=== PATIENT | female | born 1965 | race Caucasian/White ===

== ENCOUNTER 2016-12-18 18:44 | Emergency (ER) | payer OTHER ==
--- NOTE | 2016-12-18 19:27 | ED NURSING NOTES ---
Clinical Report - Nurses [facility] [address] [place] [address] 12/18/2016 18:45 Patient: BRANDON MAY TRIAGE Triage time 18:56 Dec 18 2016. Acuity: LEVEL 3. Chief Complaint: COUGH and FEVER. SEPSIS SCREEN: Sepsis Screen: negative. Infection suspected/documented. Heart rate greater than 90. DIANE COMA SCORE: Diane Coma Scale: 15- eyes open spontaneously (4); best verbal response- oriented x 4 (5); best motor response- obeys commands (6). --19:02 Karon Hunter 18:59 12/18/16. BP: 153/96. HR: 110. RR: 20. O2 saturation: 100% on room air. Temp: 97.5 F (oral). Pain level now: 04/03. --19:02 Karon Hunter. Weight: 45.3 kg stated. Height/Length: 63 inches Per Patient. BMI: 17.7. --19:02 Karon Hunter. Medications Aleve Oral 440 mg, 2x a day. --19:00 Karon Hunter. Allergies Morphine and Related. Definite Moderate(jittery) (shakes) --19:00 Karon Hunter. History Arrived by private vehicle. Historian: patient. Accompanied by friend. Primary physician (rod). Onset. (2 weeks). ( Patient reports she has been coughing and having fever for two weeks. Patient reports a roommate has been diagnosed with flu and pneumonia. Patient reports she has been waiting to get better but has not improved.). She has had chest congestion. PAST MEDICAL HX: Immunizations: up-to-date. Last normal menstrual period- 2 years ago. SOCIAL HX: Heavy tobacco smoker (cigarette)- 1 pack per day. Alcohol use; consumes one wine daily. No drug use. No infectious disease exposure. ABUSE ASSESSMENT: No report of abuse. FALL RISK ASSESSMENT: Fall risk assessment completed. No fall risk identified. NUTRITIONAL RISK ASSESSMENT: The nutritional risk assessment revealed no deficiencies. FUNCTIONAL ASSESSMENT: Functional assessment: no impairments noted. LEARNING NEEDS ASSESSMENT: The learning needs assessment revealed no barriers. SKIN INTEGRITY ASSESSMENT: Skin integrity risk assessment completed. No skin integrity risk identified. --19:02 Karon Hunter. PROBLEMS: Paresthesia. Pancreatitis. Alcohol Withdrawal. Peptic Ulcer Disease. Cellulitis. Chest Pain. Fibromyalgia. Hypertension. --19: Karon Hunter. ADDITIONAL SURGERIES: Breast Augmentation. . Thyroid Surgery. --19: Karon Hunter. Interventions ID band on patient. To treatment room. --19:02 Karon Hunter. PHYSICAL ASSESSMENT Ambulatory to room. GENERAL / NEURO / PSYCH: Alert. Oriented X 4. Appears in no acute distress. HEENT: Mucous membranes are pink. RESPIRATORY: Respirations not labored. Cough productive of scant amounts of yellow sputum. CVS: Cardiac rhythm: sinus tachycardia; (109). SKIN: Skin is warm and dry. --19:03 Karon Hunter. NURSING PROGRESS NOTES 19:03 12/18/16. Pulse oximeter and NIBP monitor placed on patient; monitor alarms on. Patient gowned. Head of bed elevated. Warming measures: blanket applied. Reassurance given to the patient. Two patient identifiers checked. Call light placed in reach. Side rails up x 1. Bed placed in lowest position. Brakes of bed on. Patient ready for evaluation- chart flagged. --19:03 Karon Hunter. DISPOSITION / DISCHARGE 19:35 12/18/16. Condition at departure: stable. No learning barriers present. Discharge instructions provided and reviewed with the patient. Reviewed medication(s) side effects, precautions, dosing and course information. Prescription(s) given to the patient. Reviewed need for increased fluid intake. Reviewed need to stop smoking- provided smoking cessation counseling. Patient verbalized understanding. Written instructions provided in Belarusian. The patient was discharged by the nurse practitioner. She was discharged home and accompanied by speech and language assistant. She left the Emergency Department ambulatory and via private vehicle. Child Nutrition Director driving. --19:35 Kraon Hunter 19:33 12/18/16. BP: 109/80. HR: 95. RR: 20. O2 saturation: 97% on room air. Temp: 98 F (oral). Pain level now: 5/10. --19:35 Karon Hunter The goals identified in the patient's plan of care were met. FALL RISK ASSESSMENT: Fall risk assessment completed. No fall risk identified. --19:35 Karon Hunter. Locked/Released at 12/18/2016 20:26 by Karon Hunter,
--- NOTE | 2016-12-18 19:27 | ED NURSING NOTES ---
Clinical Report - Nurses [facility] [address] [place] [address] 12/18/2016 18:45 Patient: BRANDON MAY TRIAGE Triage time 18:56 Dec 18 2016. Acuity: LEVEL 3. Chief Complaint: COUGH and FEVER. SEPSIS SCREEN: Sepsis Screen: negative. Infection suspected/documented. Heart rate greater than 90. DIANE COMA SCORE: Diane Coma Scale: 15- eyes open spontaneously (4); best verbal response- oriented x 4 (5); best motor response- obeys commands (6). --19:02 Karon Hunter 18:59 12/18/16. BP: 153/96. HR: 110. RR: 20. O2 saturation: 100% on room air. Temp: 97.5 F (oral). Pain level now: 04/03. --19:02 Karon Hunter. Weight: 45.3 kg stated. Height/Length: 63 inches Per Patient. BMI: 17.7. --19:02 Karon Hunter. Medications Aleve Oral 440 mg, 2x a day. --19:00 Karon Hunter. Allergies Morphine and Related. Definite Moderate(jittery) (shakes) --19:00 Karon Hunter. History Arrived by private vehicle. Historian: patient. Accompanied by friend. Primary physician (rod). Onset. (2 weeks). ( Patient reports she has been coughing and having fever for two weeks. Patient reports a roommate has been diagnosed with flu and pneumonia. Patient reports she has been waiting to get better but has not improved.). She has had chest congestion. PAST MEDICAL HX: Immunizations: up-to-date. Last normal menstrual period- 2 years ago. SOCIAL HX: Heavy tobacco smoker (cigarette)- 1 pack per day. Alcohol use; consumes one wine daily. No drug use. No infectious disease exposure. ABUSE ASSESSMENT: No report of abuse. FALL RISK ASSESSMENT: Fall risk assessment completed. No fall risk identified. NUTRITIONAL RISK ASSESSMENT: The nutritional risk assessment revealed no deficiencies. FUNCTIONAL ASSESSMENT: Functional assessment: no impairments noted. LEARNING NEEDS ASSESSMENT: The learning needs assessment revealed no barriers. SKIN INTEGRITY ASSESSMENT: Skin integrity risk assessment completed. No skin integrity risk identified. --19:02 Karon Hunter. PROBLEMS: Paresthesia. Pancreatitis. Alcohol Withdrawal. Peptic Ulcer Disease. Cellulitis. Chest Pain. Fibromyalgia. Hypertension. --19: Karon Hunter. ADDITIONAL SURGERIES: Breast Augmentation. . Thyroid Surgery. --19: Karon Hunter. Interventions ID band on patient. To treatment room. --19:02 Karon Hunter. PHYSICAL ASSESSMENT Ambulatory to room. GENERAL / NEURO / PSYCH: Alert. Oriented X 4. Appears in no acute distress. HEENT: Mucous membranes are pink. RESPIRATORY: Respirations not labored. Cough productive of scant amounts of yellow sputum. CVS: Cardiac rhythm: sinus tachycardia; (109). SKIN: Skin is warm and dry. --19:03 Karon Hunter. NURSING PROGRESS NOTES 19:03 12/18/16. Pulse oximeter and NIBP monitor placed on patient; monitor alarms on. Patient gowned. Head of bed elevated. Warming measures: blanket applied. Reassurance given to the patient. Two patient identifiers checked. Call light placed in reach. Side rails up x 1. Bed placed in lowest position. Brakes of bed on. Patient ready for evaluation- chart flagged. --19:03 Karon Hunter. DISPOSITION / DISCHARGE 19:35 12/18/16. Condition at departure: stable. No learning barriers present. Discharge instructions provided and reviewed with the patient. Reviewed medication(s) side effects, precautions, dosing and course information. Prescription(s) given to the patient. Reviewed need for increased fluid intake. Reviewed need to stop smoking- provided smoking cessation counseling. Patient verbalized understanding. Written instructions provided in South [place]ese. The patient was discharged by the nurse practitioner. She was discharged home and accompanied by parent aide. She left the Emergency Department ambulatory and via private vehicle. [employer] driving. --19:35 Karon Hunter 19:33 12/18/16. BP: 109/80. HR: 95. RR: 20. O2 saturation: 97% on room air. Temp: 98 F (oral). Pain level now: 5/10. --19:35 Karon Hunter The goals identified in the patient's plan of care were met. FALL RISK ASSESSMENT: Fall risk assessment completed. No fall risk identified. --19:35 Karon Hunter. Locked/Released at 12/18/2016 20:26 by Karon Hunter,
--- NOTE | 2016-12-18 19:27 | ED CLINICAL REPORT ---
Clinical Report - Physicians/Mid Levels [facility] [address] [place] [address] 12/18/2016 18:45 Patient: BRANDON MAY Time Seen: 19:02; initial patient contact, initial documentation, patient care assumed. Arrived- By private vehicle. Historian- patient. HISTORY OF PRESENT ILLNESS Chief Complaint: COUGH. This started about 2 weeks ago and is still present. The illness is described as moderate. The patient has had a cough and fever. She has had scant amounts of thick, clear, yellow, green, white sputum. No sore throat, nasal congestion or discharge, sinus pressure or sinus drainage. She has had moderate right ear pain and has had mild left ear pain. Additional history - The patient has had contact with a sick friend. Symptoms of the sick contact include cough. They have had similar symptoms. No recent travel. Similar symptoms previously: None. Recent medical care: Not recently seen/assessed. REVIEW OF SYSTEMS No headache. All systems otherwise negative, except as recorded above. PAST HISTORY See nurses notes. PROBLEMS: Paresthesia. Pancreatitis. Alcohol Withdrawal. Peptic Ulcer Disease. Cellulitis. Chest Pain. Fibromyalgia. Hypertension. --19:01 Karon Hunter. ADDITIONAL SURGERIES: Breast Augmentation. . Thyroid Surgery. --19:01 Karon Hunter. SOCIAL HISTORY Heavy tobacco smoker. Regular alcohol use; consumes wine. Not exposed to second-hand smoke at home. No drug use. No recent travel. Is a local resident. FAMILY HISTORY Negative. ADDITIONAL NOTES The nursing notes have been reviewed with agreement regarding the chief complaint, HPI, ROS, PMH and patient medications and allergies. PHYSICAL EXAM Vital Signs: 12/18/2016 18:59 BP: 153/96. HR: 110. RR: 20. O2 saturation: 100%. Temp: 97.5 F. Pain level now: 6/10. Have been reviewed as abnormal and appear to be correct. Hypertensive. Tachycardic. Respiratory rate normal. Temperature normal. Oxygen saturation normal. Appearance: Alert. No acute distress. Eyes: Pupils equal, round and reactive to light. Eyes normal inspection. ENT: Ears normal. Nose normal. Pharynx normal. Uvula midline. Neck: Normal inspection. Neck supple. CVS: Heart rate / rhythm abnormal. Tachycardia (ventricular rate = 110). Heart sounds normal. Pulses normal. Respiratory: No respiratory distress. Breath sounds normal. Back: Normal inspection. Skin: Skin warm and dry. Normal skin color. No rash. Normal skin turgor. Extremities: Extremities exhibit normal ROM. No lower extremity edema. Neuro: Oriented X 3. No motor deficit. No sensory deficit. PROGRESS AND PROCEDURES Patient counseled in person regarding the patient's stable condition and diagnosis. 19:26. Differential Diagnosis: Other possible considerations: viral illness, flu, sinusitis, allergies, uri, bronchitis, pneumonia. Above considerations are based on history and physical exam. Differential diagnosis was discussed with patient. Disposition: Discharged home in good and unchanged condition (19:27). Condition: good and stable. CLINICAL IMPRESSION Acute bacterial bronchitis. No chronic obstructive pulmonary disease, asthma or bronchospasm. INSTRUCTIONS Drink plenty of fluids. Warnings: GENERAL WARNINGS: Return or contact your physician immediately if your condition worsens or changes unexpectedly, if not improving as expected, or if other problems arise. Specifically return if problem worsens. Prescription Medications: Zithromax 250 mg tablets: take 2 orally today, followed by 1 daily for the next 4 days. No refills. Substitution is permissible. Follow-up: Follow up with your doctor in about three days as needed. Call for an appointment. Summary of care provided to patient. Understanding of the discharge instructions verbalized by patient. (Electronically signed by Belkis Avila A.R.N.P. 12/18/2016 19:50)
--- NOTE | 2016-12-18 20:27 | ED MAR SUMMARY ---
..... Medication Administration Record [facility] [address], [place] [id number] Patient: BRANDON MAY Visit ID: [id number] 51y, F Weight: 45.3 kg Height/Length: 63 in BMI: 17.7 ALLERGIES: Morphine and Related
--- NOTE | 2016-12-18 20:27 | ED MAR SUMMARY ---
..... Medication Administration Record [facility] [address], [place] [id number] Patient: BRANDON MAY Visit ID: [id number] 51y, F Weight: 45.3 kg Height/Length: 63 in BMI: 17.7 ALLERGIES: Morphine and Related
--- NOTE | 2016-12-18 20:27 | ED MED RECONCILIATION SUMMARY ---
Patient: BRANDON MAY Medication Reconciliation Report [facility] VisitID: [id number] [address] [place] [address] 51y, F Registration Date/Time: 12/18/2016 Weight: 45.3 kg Height/Length: 63 in. BMI: 17.7 ALLERGIES: Morphine and Related The patient's Home Medications are listed below: THE FOLLOWING MEDICATIONS NEED TO BE RECONCILED: Aleve Oral 440 mg, 2x a day The source(s) of the original Home Medication information: Not obtained. The following Medications were given to the patient in the Emergency Department: None. The following Medications were prescribed to the patient: Zithromax 250 mg tablets: take 2 orally today, followed by 1 daily for the next 4 days. No refills. Substitution is permissible. -- Belkis Avila A.R.N.P.
--- NOTE | 2016-12-18 20:27 | ED DISCHARGE INSTRUCTIONS ---
Patient: BRANDON MAY General Instructions [facility] VisitID: [id number] [address] [place] [address] 51y, F Registration Date/Time: 12/18/2016 Acute bacterial bronchitis. No chronic obstructive pulmonary disease, asthma or bronchospasm. INSTRUCTIONS Drink plenty of fluids. Warnings: GENERAL WARNINGS: Return or contact your physician immediately if your condition worsens or changes unexpectedly, if not improving as expected, or if other problems arise. Specifically return if problem worsens. Prescription Medications: Zithromax 250 mg tablets: take 2 orally today, followed by 1 daily for the next 4 days. No refills. Substitution is permissible. Follow-up: Follow up with your doctor in about three days as needed. Call for an appointment. Summary of care provided to patient. Understanding of the discharge instructions verbalized by patient. ADDITIONAL INFORMATION Bronchitis (Adult: Abx Tx) BRONCHITIS is an infection of the air passages (bronchial tubes). It often occurs during the common cold. Symptoms include cough with mucus (phlegm) and low-grade fever. Bronchitis usually lasts 7-14 days. Mild cases can be treated with simple home remedies. More severe infection is treated with an antibiotic. Home Care: If symptoms are severe, rest at home for the first 2-3 days. When you resume activity, don't let yourself get too tired. Do not smoke. Avoid being exposed to the smoke of others. You may use acetaminophen (Tylenol) or ibuprofen (Motrin, Advil) to control fever or pain, unless another medicine was prescribed for this. [NOTE: If you have chronic liver or kidney disease or ever had a stomach ulcer or GI bleeding, talk with your doctor before using these medicines.] Your appetite may be poor, so a light diet is fine. Avoid dehydration by drinking 6-8 glasses of fluids per day (water, soft, drinks, juices, tea, soup, etc.). Extra fluids will help loosen secretions in the lungs. Stui-ftg-[id number] cough medicines that containdextromethorphan(such as Robitussin DM) and decongestants (Actifed or Sudafed) may help relieve cough and congestion. [NOTE: Do not use decongestants if you have high blood pressure.] Finish all antibiotic medicine, even if you are feeling better after only a few days. Follow Up with your doctor or as directed if you dont start to feel better after three days. [NOTE: If you are age 65 or older, or if you have chronic asthma or COPD, we recommend a PNEUMOCOCCAL VACCINATION every five years and a yearly INFLUENZAVACCINATION (FLU-SHOT) every . Ask your doctor about this. If you had an X-ray, a radiologist will review it. You will be notified of any new findings that may affect your care.] Get Prompt Medical Attention if any of the following occur: Fever over 100.4F (38.0C) for more than three days Trouble breathing, wheezing or pain with breathing Coughing up blood or increased amounts of colored sputum Weakness, drowsiness, headache, facial pain, ear pain or a stiff neck Azithromycin Oral tablet What is this medicine? AZITHROMYCIN (az ith tyrone MYE sin) is a macrolide antibiotic. It is used to treat or prevent certain kinds of bacterial infections. It will not work for colds, flu, or other viral infections. How should I use this medicine? Take this medicine by mouth with a full glass of water. Follow the directions on the prescription label. The tablets can be taken with food or on an empty stomach. If the medicine upsets your stomach, take it with food. Take your medicine at regular intervals. Do not take your medicine more often than directed. Take all of your medicine as directed even if you think your are better. Do not skip doses or stop your medicine early. Talk to your executive wellness programs director regarding the use of this medicine in children. Special care may be needed. What side effects may I notice from receiving this medicine? Side effects that you should report to your doctor or health care giver as soon as possible: allergic reactions like skin rash, itching or hives, swelling of the face, lips, or tongue confusion, nightmares or hallucinations dark urine difficulty breathing hearing loss irregular heartbeat or chest pain pain or difficulty passing urine redness, blistering, peeling or loosening of the skin, including inside the mouth white patches or sores in the mouth yellowing of the eyes or skin Side effects that usually do not require medical attention (report to your doctor or health care giver if they continue or are bothersome): diarrhea dizziness, drowsiness headache stomach upset or vomiting tooth discoloration vaginal irritation What may interact with this medicine? Do not take this medicine with any of the following medications: lincomycin This medicine may also interact with the following medications: amiodarone antacids cyclosporine digoxin magnesium nelfinavir phenytoin warfarin What if I miss a dose? If you miss a dose, take it as soon as you can. If it is almost time for your next dose, take only that dose. Do not take double or extra doses. Where should I keep my medicine? Keep out of the reach of children. Store at room temperature between 15 and 30 degrees C (59 and 86 degrees F). Throw away any unused medicine after the expiration date. What should I tell my health care provider before I take this medicine? They need to know if you have any of these conditions: kidney disease liver disease irregular heartbeat or heart disease an unusual or allergic reaction to azithromycin, erythromycin, other macrolide antibiotics, foods, dyes, or preservatives or trying to get breast-feeding What should I watch for while using this medicine? Tell your doctor or health care giver if your symptoms do not improve. Do not treat diarrhea with over the counter products. Contact your doctor if you have diarrhea that lasts more than 2 days or if it is severe and watery. This medicine can make you more sensitive to the sun. Keep out of the sun. If you cannot avoid being in the sun, wear protective clothing and use sunscreen. Do not use sun lamps or tanning beds/booths. You have been given the following additional information: Bronchitis, Antiobiotic Treatment (Adult) Azithromycin Oral tablet (Electronically signed by Belkis Avila A.R.N.P. 12/18/2016 19:50)
--- NOTE | 2016-12-18 20:27 | ED DISCHARGE INSTRUCTIONS ---
Patient: BRANDON MAY General Instructions [facility] VisitID: [id number] [address] [place] [address] 51y, F Registration Date/Time: 12/18/2016 Acute bacterial bronchitis. No chronic obstructive pulmonary disease, asthma or bronchospasm. INSTRUCTIONS Drink plenty of fluids. Warnings: GENERAL WARNINGS: Return or contact your physician immediately if your condition worsens or changes unexpectedly, if not improving as expected, or if other problems arise. Specifically return if problem worsens. Prescription Medications: Zithromax 250 mg tablets: take 2 orally today, followed by 1 daily for the next 4 days. No refills. Substitution is permissible. Follow-up: Follow up with your doctor in about three days as needed. Call for an appointment. Summary of care provided to patient. Understanding of the discharge instructions verbalized by patient. ADDITIONAL INFORMATION Bronchitis (Adult: Abx Tx) BRONCHITIS is an infection of the air passages (bronchial tubes). It often occurs during the common cold. Symptoms include cough with mucus (phlegm) and low-grade fever. Bronchitis usually lasts 7-14 days. Mild cases can be treated with simple home remedies. More severe infection is treated with an antibiotic. Home Care: If symptoms are severe, rest at home for the first 2-3 days. When you resume activity, don't let yourself get too tired. Do not smoke. Avoid being exposed to the smoke of others. You may use acetaminophen (Tylenol) or ibuprofen (Motrin, Advil) to control fever or pain, unless another medicine was prescribed for this. [NOTE: If you have chronic liver or kidney disease or ever had a stomach ulcer or GI bleeding, talk with your doctor before using these medicines.] Your appetite may be poor, so a light diet is fine. Avoid dehydration by drinking 6-8 glasses of fluids per day (water, soft, drinks, juices, tea, soup, etc.). Extra fluids will help loosen secretions in the lungs. Mtpb-tcy-hjwmpoz cough medicines that containdextromethorphan(such as Robitussin DM) and decongestants (Actifed or Sudafed) may help relieve cough and congestion. [NOTE: Do not use decongestants if you have high blood pressure.] Finish all antibiotic medicine, even if you are feeling better after only a few days. Follow Up with your doctor or as directed if you dont start to feel better after three days. [NOTE: If you are age 65 or older, or if you have chronic asthma or COPD, we recommend a PNEUMOCOCCAL VACCINATION every five years and a yearly INFLUENZAVACCINATION (FLU-SHOT) every . Ask your doctor about this. If you had an X-ray, a radiologist will review it. You will be notified of any new findings that may affect your care.] Get Prompt Medical Attention if any of the following occur: Fever over 100.4F (38.0C) for more than three days Trouble breathing, wheezing or pain with breathing Coughing up blood or increased amounts of colored sputum Weakness, drowsiness, headache, facial pain, ear pain or a stiff neck Azithromycin Oral tablet What is this medicine? AZITHROMYCIN (az ith tyrone MYE sin) is a macrolide antibiotic. It is used to treat or prevent certain kinds of bacterial infections. It will not work for colds, flu, or other viral infections. How should I use this medicine? Take this medicine by mouth with a full glass of water. Follow the directions on the prescription label. The tablets can be taken with food or on an empty stomach. If the medicine upsets your stomach, take it with food. Take your medicine at regular intervals. Do not take your medicine more often than directed. Take all of your medicine as directed even if you think your are better. Do not skip doses or stop your medicine early. Talk to your senior network engineer regarding the use of this medicine in children. Special care may be needed. What side effects may I notice from receiving this medicine? Side effects that you should report to your doctor or health landcare facilitator as soon as possible: allergic reactions like skin rash, itching or hives, swelling of the face, lips, or tongue confusion, nightmares or hallucinations dark urine difficulty breathing hearing loss irregular heartbeat or chest pain pain or difficulty passing urine redness, blistering, peeling or loosening of the skin, including inside the mouth white patches or sores in the mouth yellowing of the eyes or skin Side effects that usually do not require medical attention (report to your doctor or health landcare facilitator if they continue or are bothersome): diarrhea dizziness, drowsiness headache stomach upset or vomiting tooth discoloration vaginal irritation What may interact with this medicine? Do not take this medicine with any of the following medications: lincomycin This medicine may also interact with the following medications: amiodarone antacids cyclosporine digoxin magnesium nelfinavir phenytoin warfarin What if I miss a dose? If you miss a dose, take it as soon as you can. If it is almost time for your next dose, take only that dose. Do not take double or extra doses. Where should I keep my medicine? Keep out of the reach of children. Store at room temperature between 15 and 30 degrees C (59 and 86 degrees F). Throw away any unused medicine after the expiration date. What should I tell my health care provider before I take this medicine? They need to know if you have any of these conditions: kidney disease liver disease irregular heartbeat or heart disease an unusual or allergic reaction to azithromycin, erythromycin, other macrolide antibiotics, foods, dyes, or preservatives or trying to get breast-feeding What should I watch for while using this medicine? Tell your doctor or health landcare facilitator if your symptoms do not improve. Do not treat diarrhea with over the counter products. Contact your doctor if you have diarrhea that lasts more than 2 days or if it is severe and watery. This medicine can make you more sensitive to the sun. Keep out of the sun. If you cannot avoid being in the sun, wear protective clothing and use sunscreen. Do not use sun lamps or tanning beds/booths. You have been given the following additional information: Bronchitis, Antiobiotic Treatment (Adult) Azithromycin Oral tablet (Electronically signed by Belkis Avila A.R.N.P. 12/18/2016 19:50)
--- NOTE | 2016-12-18 20:27 | ED MED RECONCILIATION SUMMARY ---
Patient: BRANDON MAY Medication Reconciliation Report [facility] VisitID: [id number] [address] [place] [address] 51y, F Registration Date/Time: 12/18/2016 Weight: 45.3 kg Height/Length: 63 in. BMI: 17.7 ALLERGIES: Morphine and Related The patient's Home Medications are listed below: THE FOLLOWING MEDICATIONS NEED TO BE RECONCILED: Aleve Oral 440 mg, 2x a day The source(s) of the original Home Medication information: Not obtained. The following Medications were given to the patient in the Emergency Department: None. The following Medications were prescribed to the patient: Zithromax 250 mg tablets: take 2 orally today, followed by 1 daily for the next 4 days. No refills. Substitution is permissible. -- Belkis Avila A.R.N.P.
== END 2016-12-18 19:30 | disposition home or self-care (01) ==
LOC: ED SRH 18:44
DX: J20.8 Acute bronchitis due to other specified organisms (principal); B96.89 Other specified bacterial agents as the cause of diseases classified elsewhere; I10 Essential (primary) hypertension; Z88.5 Allergy status to narcotic agent; F17.210 Nicotine dependence, cigarettes, uncomplicated

== ENCOUNTER 2017-01-22 08:41 | Emergency (ER) | payer OTHER ==
--- NOTE | 2017-01-22 10:19 | DIAGNOSTIC IMAGING REPORT ---
PROCEDURE: CT HEAD WITHOUT CONTRAST INDICATION: TRAUMA/INJURY TECHNIQUE: Axial CT images were acquired through the head. Coronal and sagittal reformations were created. COMPARISON: None. FINDINGS: No intracranial hemorrhage or extraaxial fluid collections. Ventricles are normal in size, shape and position. There is no mass, mass effect or midline shift. Mild diffuse cerebral cortical atrophy. The hussein-white matter differentiation is normal. There is no edema. The calvarium is intact. The paranasal sinuses and mastoid air cells are normally aerated. Very small soft tissue contusion over the frontal region in the midline. IMPRESSION: 1. No CT evidence of acute intracranial process. 2. Minor frontal soft tissue contusion without underlying fracture. 3. Findings discussed with Dr. Brown at 10:[address] scans at this facility use dose modulation, iterative reconstruction, and/or weight-based dosing when appropriate to reduce radiation dose to as low as reasonably achievable.
--- NOTE | 2017-01-22 10:24 | DIAGNOSTIC IMAGING REPORT ---
PROCEDURE: CT CERVICAL SPINE W/O CONTRAST INDICATION: TRAUMA/INJURY, fall onto the frontal region TECHNIQUE: Axial CT images were obtained through the cervical spine. Coronal and sagittal reformations were created. No comparison. COMPARISON: None. FINDINGS: The craniocervical junction is intact. The cervical vertebral bodies are normal in height without evidence of fracture. There is moderate uncovertebral joint hypertrophy at the C5-6 level causing moderate right, and mild left foraminal narrowing. Mild posterior disc osteophyte complexes present at C6-7. Small posterior central spur present at T1-2. No pathologic subluxation. Moderate disc height loss at C5-6 and mild disc height loss at C4-5. The alignment and disk spacing is otherwise normal. The central canal is patent. No spinal stenosis or neural foraminal narrowing. No prevertebral or paravertebral soft-tissue swelling or mass. There has been a left thyroidectomy. There is ascending arrow ectasia of the ascending aorta measuring 3.9 cm in AP diameter. Lung apices demonstrate minor emphysematous changes. Patent airway. IMPRESSION: 1. Intact cervical spine without evidence of acute trauma. 2. Mild degenerative disc endplate changes. There may be a moderate right foraminal narrowing at C5-6 causing right C6 radiculopathy. Correlate clinically. 3. Status post left thyroidectomy. 4. Findings called to the emergency room. All CT scans at this facility use dose modulation, iterative reconstruction, and/or weight-based dosing when appropriate to reduce radiation dose to as low as reasonably achievable.
--- NOTE | 2017-01-22 10:29 | ED NURSING NOTES ---
Clinical Report - Nurses [facility] [address] [place] [address] 01/22/2017 8:42 Patient: BRANDON MAY TRIAGE Triage time 08:48 Jan 22 2017. Acuity: LEVEL 3. Chief Complaint: FALL (Fell in bathroom about an hour and half ago due to dog tripping her. Hit head on jewelery box). 08:55 01/22/17. SEPSIS SCREEN: Sepsis Screen. Negative (no infection suspected/documented). MITCH COMA SCORE: Butler Coma Scale: 14- eyes open to voice (3); best verbal response- oriented x 4 (5); best motor response- obeys commands (6). --08:55 Johanna Freire R.N. 08:48 01/22/17. BP: 151/108 (regular adult cuff) taken on the left arm, while lying. HR: 104. RR: 16 (regular). O2 saturation: 100% on room air. Temp: 97.5 F (oral). Pain level now: 7/10. Additional comments: STRANGE. --08:55 Johanna Freire R.N. Weight: 46.2 kg stated. Height/Length: 63 inches Per Patient. BMI: 18. --08:50 Johanna Freire R.N. Medications Aleve Oral 440 mg, 2x a day. --08:49 Johanna Freire R.N. Benadryl Allergy Oral. --08:49 Johanna Freire R.N. Allergies Morphine and Related. Definite Moderate(jittery) (shakes) --08:49 Johanna Freire R.N. History Arrived by private vehicle. Historian: patient. Accompanied by friend. Primary physician (Dr Oscar). This occurred just prior to arrival. She has had neck pain. ( Patient complains of extreme STRANGE). Treatment EXAMINATION PROCTOR: None. PAST MEDICAL HX: Hypertension. SOCIAL HX: Current every day heavy tobacco smoker- 1 pack per day. Alcohol use; consumes two glasses of wine. Last drink was less than 24 hours ago. No infectious disease exposure. ABUSE ASSESSMENT: No report of abuse. --08:55 Johanna Freire R.N. PROBLEMS: Bronchitis. Paresthesia. Pancreatitis. Peptic Ulcer Disease. Cellulitis. Fibromyalgia. Hypertension. --08:50 Johanna Freire R.N. ADDITIONAL SURGERIES: Breast Augmentation. . Thyroid Surgery. --08:50 Johanna Freire R.N. Interventions ID band on patient. To treatment room. --08:55 Johanna Freire R.N. PHYSICAL ASSESSMENT Ambulatory to room. GENERAL / NEURO / PSYCH: Alert. Oriented X 4. Appears in pain. HEENT: Forehead. Head non-tender. RESPIRATORY: Chest nontender. CVS: Capillary refill less than 2 seconds. GI / : Abdomen soft and nontender. EXTREMITIES: Extremities exhibit normal ROM. SKIN: Skin intact. Skin is warm. --08:56 Johanna Freire R.N. NURSING PROGRESS NOTES 08:56 01/22/17. The plan of care for this patient has been created. Cold pack applied. Reassurance given. Two patient identifiers checked. Call light placed in reach. Side rails up x 1. Bed placed in lowest position. Brakes of bed on. Patient ready for evaluation- chart flagged and ED physician notified. --08:56 Johanna Freire R.N. Patient transported to [place] by stretcher with [employer]. (09:18 Jan 22 2017). --09:18 Johanna Freire R.N. ( Patient unable to comply with breathalyzer, attempted 3 times but patient not blowing into device with clear instructions). --09:19 Johanna Freire R.N. Patient returned from [place] by stretcher with [employer]. (09:27 Jan 22 2017). --09:28 Johanna Freire R.N. 09:30 01/22/2017 Acetaminophen (APAP) PO 1000 mg given. Allergies verified and confirmed 5 rights. --09:30 Johanna Freire R.N. ( Patient cold, requested more blankets). --09:32 Johanna Freire R.N. 09:31 01/22/17. BP: 117/95 (regular adult cuff) taken on the left arm, while sitting. HR: 94. RR: 16 (regular). O2 saturation: 97% on room air. Pain level now: 05/03. Additional comments: STRANGE. --09:32 Johanna Freire R.N. 09:00 01/22/17. BP: 120/96 (regular adult cuff) taken on the left arm, while sitting. HR: 90. RR: 16 (regular). O2 saturation: 98% on room air. Pain level now: 05/03. --09:35 Johanna Freire R.N. ( Patient would like C-Collar placed after results of CT scan). --09:40 Johanna Freire R.N. ( CCollar placed on patient, while patient was trying to adjust chin area, she scratched her chin and it bled, bandage placed.). --09:58 Johanna Freire R.N. DISPOSITION / DISCHARGE Departure time: 10:37 Jan 22 2017. Condition at departure: improved. No learning barriers present. Discharge instructions provided and reviewed with the patient. Patient verbalized understanding. Written instructions provided in Argentine. The patient was discharged by the physician. She was discharged home and accompanied by class c truck driver. She left the Emergency Department ambulatory and via private vehicle. Dental Hygienist Mobile Coordinator driving. --10:37 Johanna Freire R.N. 10:35 01/22/17. BP: 126/95 (regular adult cuff) taken on the left arm, while sitting. HR: 90. RR: 16 (regular). O2 saturation: 98% on room air. Temp: 97.9 F (oral). Pain level now: 05/03. --10:37 Johanna Freire R.N. Locked/Released at 01/22/2017 10:58 by Johanna Freire R.N.
--- NOTE | 2017-01-22 10:29 | ED CLINICAL REPORT ---
Clinical Report - Physicians/Mid Levels [facility] [address] [place] [address] 01/22/2017 8:42 Patient: BRANDON MAY Time Seen: 08:49. Arrived- By private vehicle. Historian- patient. HISTORY OF PRESENT ILLNESS Chief Complaint: INJURY TO HEAD. Location of injuries- head. The injury occurred today about 1 1/2 hours ago. Fell while walking; tripped (over dog). Occurred at home. The patient complains of moderate pain. The patient sustained a blow to the head and was dazed. No neck pain, loss of consciousness or seizure. REVIEW OF SYSTEMS No numbness, nausea, chest pain, weakness or loss of vision. No vomiting, difficulty breathing, bladder dysfunction, laceration or fever. Has not recently been ill. She has had a moderate global headache. No similar headaches previously. All systems otherwise negative, except as recorded above. PAST HISTORY PCP: Dr Oscar See nurses notes. PROBLEMS: Paresthesia. Pancreatitis. Alcohol Withdrawal. Peptic Ulcer Disease. Cellulitis. Chest Pain. Fibromyalgia. Hypertension SURGERIES: Breast Augmentation. . Thyroid Surgery. Tetanus immunization status is up-to-date. Medications: Benadryl Allergy Oral. Aleve Oral 440 mg, 2x a day. Allergies: Morphine and Related. Definite Moderate(jittery) (shakes). SOCIAL HISTORY Alcohol use. Last drink was less than 24 hours ago. Patient is a longstanding alcoholic. No drug use. Is a local resident. ADDITIONAL NOTES The nursing notes have been reviewed. PHYSICAL EXAM Vital Signs: 01/22/2017 08:48 BP: 151/108. HR: 104. RR: 16. O2 saturation: 100%. Temp: 97.5 F. Pain level now: 7/10. Appearance: C-collar in place. (placed in the ED). Alert. Patient in mild distress. (Strong odor of the metabolic breakdown products of alcohol on her breath). Head: No Eubanks's sign or raccoon eyes. Forehead: moderate tenderness and swelling and small ecchymosis of the central forehead. No deformity. Eyes: Pupils equal, round and reactive to light. EOM intact. ENT: No dental injury. No hemotympanum. Pharynx normal. Neck: Vertebral tenderness. (there is general midline and lateral tenderness with palpation; no step off; no crepitance; no ecchymosis). CVS: Heart sounds normal. Pulses normal. Respiratory: Breath sounds normal. Chest nontender. Abdomen: Soft and nontender. Back: No tenderness. ROM normal. No vertebral point tenderness. Skin: Skin intact. Skin warm and dry. (Forehead ecchymosis). Extremities: Normal inspection. Pelvis stable. Extremities atraumatic. No lower extremity edema. Neuro: Robbins Coma Scale: 15- eyes open spontaneously (4); best verbal response- oriented x 3 (5); best motor response- obeys commands (6). Oriented X 3. Abnormal mood/affect. Speech normal. No motor deficit. Normal gait. No sensory deficit. Reflexes normal. LABS, X-RAYS, AND EKG CT C-Spine: No acute findings. Soft tissue normal. No fracture or subluxation. C-Spine CT performed without contrast. The study was independently viewed by me, interpreted by the radiologist and discussed with the radiologist. CT Head: No acute changes. No bony abnormalities, no hemorrhage, no intracranial mass, no midline shift and no hydrocephalus. Head CT performed without contrast. The study was independently viewed by me, interpreted by the radiologist and discussed with the radiologist. PROGRESS AND PROCEDURES Course of Care: Acetaminophen 1000 mg PO given. Pt not able to comply with attempts to obtain breathalyzer - not able to coordinate her breathing and the machine. She is somewhat ataxic as well - blames this on her "high heels". She has questionable ability to be monitored for head injury precautions - I will obtain CT after full discussion of risks and benefits with the patient (in the presence of her friend). Patient/family counseled. Old ED records reviewed. Patient has had multiple ED visits. Disposition: Discharged. Condition: stable and improved. CLINICAL IMPRESSION Single contusion with soft tissue hematoma to the forehead. Essential hypertension. Uncomplicated alcohol intoxication. Chronic substance abuse- alcohol. No delirium. Fall on same level by tripping. INSTRUCTIONS Apply ice. Do not work today. Warnings: GENERAL WARNINGS: Return or contact your physician immediately if your condition worsens or changes unexpectedly, if not improving as expected, or if other problems arise. Follow-up: Follow up with your doctor Mikhail in about three days. Screening today revealed the patient's blood pressure to be in the hypertensive range. The patient should follow up with a primary care provider for blood pressure management. (Electronically signed by Cory Brown DO 01/22/2017 16:54)
--- NOTE | 2017-01-22 10:29 | ED ORDER SUMMARY ---
..... Patient: BRANDON MAY OrderSheet [facility] VisitID: [id number] [place] [address] 51y, F Registration Date/Time: 01/22/2017 ORDER SHEET Weight: 46.2 kg (stated) Allergies: Morphine and Related GENERAL ORDERS: CT Cervical Spine wo Cont Urgent (09:03 01/22/2017 [facility]) (Ack 9:04 Nimeshnandez) (9:30 JSanders R.N.) CT Head wo Cont Urgent (09:03 01/22/2017 [facility]) (Ack 9:04 Nimeshnandez) (9:30 JSanders R.N.) C-Collar (09:03 01/22/2017 [facility]) (Ack 9:30 JSanders R.N.) (9:57 JSanders R.N.) Breathalyzer (09:05 01/22/2017 [facility]) (9:17 JSanders R.N.) (Cancelled: Patient Refusal9:17 JSanders R.N.) MEDICATION ORDERS: Acetaminophen PO 1,000 mg (NOW) (09:11 01/22/2017 [facility]) (9:30 JSanders R.N.) IV FLUIDS: ORDER SHEET NOTES: [Electronically signed by Johanna Freire R.N. (10:57 01/22/2017)] [Electronically signed by Cory Brown DO (16:54 01/22/2017)] [Electronically locked/signed by Johanna Freire R.N. (10:57 01/22/2017)]
--- NOTE | 2017-01-22 10:29 | ED ORDER SUMMARY ---
..... Patient: BRANDON MAY OrderSheet [facility] VisitID: [id number] [place] [address] 51y, F Registration Date/Time: 01/22/2017 ORDER SHEET Weight: 46.2 kg (stated) Allergies: Morphine and Related GENERAL ORDERS: CT Cervical Spine wo Cont Urgent (09:03 01/22/2017 [facility]) (Ack 9:04 Nimeshnandez) (9:30 JSanders R.N.) CT Head wo Cont Urgent (09:03 01/22/2017 [facility]) (Ack 9:04 iNmeshnandez) (9:30 JSanders R.N.) C-Collar (09:03 01/22/2017 [facility]) (Ack 9:30 JSanders R.N.) (9:57 JSanders R.N.) Breathalyzer (09:05 01/22/2017 [facility]) (9:17 JSanders R.N.) (Cancelled: Patient Refusal9:17 JSanders R.N.) MEDICATION ORDERS: Acetaminophen PO 1,000 mg (NOW) (09:11 01/22/2017 [facility]) (9:30 JSanders R.N.) IV FLUIDS: ORDER SHEET NOTES: [Electronically signed by Johanna Freire R.N. (10:57 01/22/2017)] [Electronically signed by Cory Brown DO (16:54 01/22/2017)] [Electronically locked/signed by Johanna Freire R.N. (10:57 01/22/2017)]
--- NOTE | 2017-01-22 10:29 | ED NURSING NOTES ---
Clinical Report - Nurses [facility] [address] [place] [address] 01/22/2017 8:42 Patient: BRANDON MAY TRIAGE Triage time 08:48 Jan 22 2017. Acuity: LEVEL 3. Chief Complaint: FALL (Fell in bathroom about an hour and half ago due to dog tripping her. Hit head on jewelery box). 08:55 01/22/17. SEPSIS SCREEN: Sepsis Screen. Negative (no infection suspected/documented). MITCH COMA SCORE: [place] Coma Scale: 14- eyes open to voice (3); best verbal response- oriented x 4 (5); best motor response- obeys commands (6). --08:55 Johanna Freire R.N. 08:48 01/22/17. BP: 151/108 (regular adult cuff) taken on the left arm, while lying. HR: 104. RR: 16 (regular). O2 saturation: 100% on room air. Temp: 97.5 F (oral). Pain level now: 7/10. Additional comments: STRANGE. --08:55 Johanna Freire R.N. Weight: 46.2 kg stated. Height/Length: 63 inches Per Patient. BMI: 18. --08:50 Johanna Freire R.N. Medications Aleve Oral 440 mg, 2x a day. --08:49 Johanna Freire R.N. Benadryl Allergy Oral. --08:49 Johanna Freire R.N. Allergies Morphine and Related. Definite Moderate(jittery) (shakes) --08:49 Johanna Freire R.N. History Arrived by private vehicle. Historian: patient. Accompanied by friend. Primary physician (Dr Oscar). This occurred just prior to arrival. She has had neck pain. ( Patient complains of extreme STRANGE). 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 PAST MEDICAL HX: Hypertension. SOCIAL HX: Current every day heavy tobacco smoker- 1 pack per day. Alcohol use; consumes two glasses of wine. Last drink was less than 24 hours ago. No infectious disease exposure. ABUSE ASSESSMENT: No report of abuse. --08:55 Johanna Freire R.N. PROBLEMS: Bronchitis. Paresthesia. Pancreatitis. Peptic Ulcer Disease. Cellulitis. Fibromyalgia. Hypertension. --08:50 Johanna Freire R.N. ADDITIONAL SURGERIES: Breast Augmentation. . Thyroid Surgery. --08:50 Johanna Freire R.N. Interventions ID band on patient. To treatment room. --08:55 Johanna Freire R.N. PHYSICAL ASSESSMENT Ambulatory to room. GENERAL / NEURO / PSYCH: Alert. Oriented X 4. Appears in pain. HEENT: Forehead. Head non-tender. RESPIRATORY: Chest nontender. CVS: Capillary refill less than 2 seconds. GI / : Abdomen soft and nontender. EXTREMITIES: Extremities exhibit normal ROM. SKIN: Skin intact. Skin is warm. --08:56 Johanna Freire R.N. NURSING PROGRESS NOTES 08:56 01/22/17. The plan of care for this patient has been created. Cold pack applied. Reassurance given. Two patient identifiers checked. Call light placed in reach. Side rails up x 1. Bed placed in lowest position. Brakes of bed on. Patient ready for evaluation- chart flagged and ED physician notified. --08:56 Johanna Freire R.N. Patient transported to [place] by stretcher with Outlisten. (09:18 Jan 22 2017). --09:18 Johanna Freire R.N. ( Patient unable to comply with breathalyzer, attempted 3 times but patient not blowing into device with clear instructions). --09:19 Johanna Freire R.N. Patient returned from PA by stretcher with Outlisten. (09:27 Jan 22 2017). --09:28 Johanna Freire R.N. 09:30 01/22/2017 Acetaminophen (APAP) PO 1000 mg given. Allergies verified and confirmed 5 rights. --09:30 Johanna Freire R.N. ( Patient cold, requested more blankets). --09:32 Johanna Freire R.N. 09:31 01/22/17. BP: 117/95 (regular adult cuff) taken on the left arm, while sitting. HR: 94. RR: 16 (regular). O2 saturation: 97% on room air. Pain level now: 05/03. Additional comments: STRANGE. --09:32 Johanna Freire R.N. 09:00 01/22/17. BP: 120/96 (regular adult cuff) taken on the left arm, while sitting. HR: 90. RR: 16 (regular). O2 saturation: 98% on room air. Pain level now: 05/03. --09:35 Johanna Freire R.N. ( Patient would like C-Collar placed after results of CT scan). --09:40 Johanna Freire R.N. ( CCollar placed on patient, while patient was trying to adjust chin area, she scratched her chin and it bled, bandage placed.). --09:58 Johanna Freire R.N. DISPOSITION / DISCHARGE Departure time: 10:37 Jan 22 2017. Condition at departure: improved. No learning barriers present. Discharge instructions provided and reviewed with the patient. Patient verbalized understanding. Written instructions provided in Com[place]an. The patient was discharged by the physician. She was discharged home and accompanied by meat clerk. She left the Emergency Department ambulatory and via private vehicle. Fire Coordinator driving. --10:37 Johanna Freire R.N. 10:35 01/22/17. BP: 126/95 (regular adult cuff) taken on the left arm, while sitting. HR: 90. RR: 16 (regular). O2 saturation: 98% on room air. Temp: 97.9 F (oral). Pain level now: 05/03. --10:37 Johanna Freire R.N. Locked/Released at 01/22/2017 10:58 by Johanna Freire R.N.
--- NOTE | 2017-01-22 16:54 | ED MAR SUMMARY ---
..... Medication Administration Record [facility] [address] [place] [address] Patient: BRANDON MAY Visit ID: [id number] 51y, F Weight: 46.2 kg Height/Length: 63 in BMI: 18 ALLERGIES: Morphine and Related Given 09:30 01/22/2017 Johanna Freire R.N. Medication Administered: ACETAMINOPHEN [PO] (APAP), Dose: 1000 mg PO. Medication Ordered: Acetaminophen PO 1,000 mg (NOW).
--- NOTE | 2017-01-22 16:54 | ED MED RECONCILIATION SUMMARY ---
Patient: BRANDON MAY Medication Reconciliation Report [facility] VisitID: [id number] [address] [place] [address] 51y, F Registration Date/Time: 01/22/2017 Weight: 46.2 kg Height/Length: 63 in. BMI: 18.0 ALLERGIES: Morphine and Related The patient's Home Medications are listed below: THE FOLLOWING MEDICATIONS NEED TO BE RECONCILED: Aleve Oral 440 mg, 2x a day Benadryl Allergy Oral The source(s) of the original Home Medication information: Not obtained. The following Medications were given to the patient in the Emergency Department: Acetaminophen [PO] PO 1000 mg, administered: 01/22/2017 9:30:00 AM The following Medications were prescribed to the patient: None.
--- NOTE | 2017-01-22 16:54 | ED MAR SUMMARY ---
..... Medication Administration Record [facility] [address] [place] [address] Patient: BRANDON MAY Visit ID: [id number] 51y, F Weight: 46.2 kg Height/Length: 63 in BMI: 18 ALLERGIES: Morphine and Related Given 09:30 01/22/2017 Johanna Freire R.N. Medication Administered: ACETAMINOPHEN [PO] (APAP), Dose: 1000 mg PO. Medication Ordered: Acetaminophen PO 1,000 mg (NOW).
--- NOTE | 2017-01-22 16:54 | ED DISCHARGE INSTRUCTIONS ---
Patient: BRANDON MAY General Instructions [facility] VisitID: [id number] [place] [address] 51y, F Registration Date/Time: 01/22/2017 Single contusion with soft tissue hematoma to the forehead. Essential hypertension. Uncomplicated alcohol intoxication. Chronic substance abuse- alcohol. No delirium. Fall on same level by tripping. INSTRUCTIONS Apply ice. Do not work today. Warnings: GENERAL WARNINGS: Return or contact your physician immediately if your condition worsens or changes unexpectedly, if not improving as expected, or if other problems arise. Follow-up: Follow up with your doctor Mikhail in about three days. Screening today revealed the patient's blood pressure to be in the hypertensive range. The patient should follow up with a primary care provider for blood pressure management. ADDITIONAL INFORMATION Mechanical Fall You have had a fall today. It appears that the cause is mechanical. That means that you slipped, tripped or lost your balance. If your fall had been due to fainting or a seizure, further tests would be required. Home Care: Rest today and resume your normal activities when you are feeling back to normal. If you were injured during the fall, follow the advice from your doctor regarding care of your injury. You may use acetaminophen (Tylenol) or ibuprofen (Motrin, Advil) to control pain, unless another pain medicine was prescribed. [NOTE: If you have chronic liver or kidney disease or ever had a stomach ulcer or GI bleeding, talk with your doctor before using these medicines.] Fall Prevention: Was there anything that caused your fall that can be fixed, removed, or replaced? Make your home safe by keeping walkways clear of objects you may trip over. Use non-slip pads under rugs. Do not walk in poorly lit areas. Do not stand on chairs or wobbly ladders. Use caution when reaching overhead or looking upward. This position can cause a loss of balance. Be sure your shoes fit properly, have non-slip bottoms and are in good condition. Be cautious when going up and down curbs, and walking on uneven sidewalks. If your balance is poor, consider using a cane or walker. Stay as active as you can. Balance, flexibility, strength, and endurance all come from exercise. They all play a role in preventing falls. Follow Up with your doctor or as advised by our staff. Get Prompt Medical Attention if any of the following occur: Repeated mechanical falls, or unexplained falls Dizziness, fainting or seizure Severe headache Chest pain or shortness of breath Palpitations (very rapid or very slow or irregular heartbeat) Blood in vomit, stools (black or red color) Weakness of an arm or leg or one side of the face Difficulty with speech or vision Facial Contusion (No Wake-Up) A facial contusion is a bruise with swelling and sometimes bleeding under the skin. The swelling should start to go down within two days. Although there may be no signs of a serious injury at this time, symptoms may appear later which could be a sign of a more serious problem. Therefore, watch for the warning signs below. Home care The following guidelines will help you care for your injury at home: If you have swelling of the face, apply an ice pack (ice cubes in a plastic bag, wrapped in a towel) for 20 minutes every 12 hours until the swelling starts to go down. If you have scrapes or cuts on your face, clean them daily with soap and water. Apply an antibiotic ointment or cream for the first few days to prevent infection. You may use acetaminophen or ibuprofen to control pain, unless another pain medicine was prescribed.If you have chronic liver or kidney disease or ever had a stomach ulcer or GI bleeding, talk with your doctor before using these medicines. Do not use ibuprofen in children under six months of age. For the next 24 hours: Do not take alcohol, sedatives or medicines that make you sleepy. Do not drive or operate machinery. Avoid strenuous activities. No lifting or straining. If you have had any symptoms of aconcussiontoday (nausea, vomiting, dizziness, confusion, headache, memory loss or if you were knocked out), do not return to sports or any activity that could result in another head injury until all symptoms are gone and you have been cleared by your doctor. A second head injury before fully recovering from the first one can lead to serious brain injury. Follow-up care Follow up with your doctor in one week or as directed. Note: Any X-rays or CT scans taken will be reviewed by a radiologist. You will be notified of any new findings that may affect your care. When to seek medical care Get prompt medical attention if any of the following occur: Repeated vomiting Severe or worsening headache or dizziness Unusual drowsiness, or unable to awaken as usual Confusion or change in behavior or speech, memory loss, blurred vision Convulsion (seizure) Increasing scalp or face swelling Redness, warmth or pus from the swollen area Fluid drainage or bleeding from the nose or ears Fever of 100.4F (38C) or higher, or as directed by your health care provider Increasing jaw pain with chewing or increasing pain in the sinuses Nose looks crooked or cannot breathe through your nose after swelling goes down High Blood Pressure --Established High Blood Pressure (Hypertension) is a chronic disease. The cause is unknown in most cases. It can usually be controlled with lifestyle changes and/or medicines. Symptoms of high blood pressure may include headache, dizziness, visual changes, chest pain and shortness of breath. Sometimes it causes no symptoms at all. However, even if there are no symptoms, untreated high blood pressure increases the risk of heart attack, also known as acute myocardial infarction, or AMI, and stroke. It is a serious health risk and should not be ignored. A normal blood pressure is 120/80 or less. The first (top) number is the "systolic" pressure. The second (bottom) number is the "diastolic" pressure. Hypertension exists when either the top number is 140 or higher, OR the bottom number is 90 or higher on repeated measurements. Home Care: All patients with high blood pressure should do the following to lower their pressure. If you are on medicines, then these methods may reduce or eliminate your need for medicines in the future. Begin a weight loss program if you are overweight. Reduce your salt intake. Avoid high salt foods (olives, pickles, smoked meats, salted potato chips, etc.). Do not add salt to your food at the table. Use only small amounts of salt when cooking. Begin an exercise program. Discuss with your doctor what type of exercise program would be best for you. It doesn't have to be difficult. Even brisk walking for 20 minutes three times a week is a good form of exercise. Avoid medicines which contain heart stimulants. This includes many cold and sinus decongestant pills and sprays as well as diet pills. Check the warnings about hypertension on the label. Stimulants such as amphetamine or cocaine could be lethal for someone with hypertension. Never take these. Limit your caffeine intake or switch to caffeine-free products. Stop smoking. If you are a long-time smoker, this can be hard. Enroll in a stop-smoking program to improve your chance of success. Learning how to handle stress better is an important part of any program to lower blood pressure. Learn about relaxation methods such as meditation, yoga or biofeedback. If medicines were prescribed, take them exactly as directed. Missing doses may cause your blood pressure get out of control. Consider buying an automatic blood pressure machine (available at most pharmacies). Use this to monitor your blood pressure at home and report the results to your doctor. Follow Up: Regular visits to your own physician for blood pressure checks and medicine adjustment is an important part of your care. Make a follow-up appointment as directed by our staff. Get Prompt Medical Attention if any of the following occur: Chest pain or shortness of breath Severe headache Throbbing or rushing sound in the ears Nosebleed Sudden severe abdominal pain Extreme drowsiness, confusion or fainting Dizziness or vertigo (dizziness with spinning sensation) Weakness of an arm or leg or one side of the face Difficulty with speech or vision You have been given the following additional information: Fall, Mechanical Facial Contusion, No Wakeup Hypertension, Established Do not work today. (Electronically signed by Cory Brown DO 01/22/2017 16:54)
--- NOTE | 2017-01-22 16:54 | ED MED RECONCILIATION SUMMARY ---
Patient: BRANDON MAY Medication Reconciliation Report [facility] VisitID: [id number] [address] [place] [address] 51y, F Registration Date/Time: 01/22/2017 Weight: 46.2 kg Height/Length: 63 in. BMI: 18.0 ALLERGIES: Morphine and Related The patient's Home Medications are listed below: THE FOLLOWING MEDICATIONS NEED TO BE RECONCILED: Aleve Oral 440 mg, 2x a day Benadryl Allergy Oral The source(s) of the original Home Medication information: Not obtained. The following Medications were given to the patient in the Emergency Department: Acetaminophen [PO] PO 1000 mg, administered: 01/22/2017 9:30:00 AM The following Medications were prescribed to the patient: None.
== END 2017-01-22 10:37 | disposition home or self-care (01) ==
LOC: ED SRH 08:41
DX: S00.83XA Contusion of other part of head, initial encounter (principal); F10.120 Alcohol abuse with intoxication, uncomplicated; I10 Essential (primary) hypertension; W01.0XXA Fall on same level from slipping, tripping and stumbling without subsequent striking against object, initial encounter; Y93.89 Activity, other specified; Y92.012 Bathroom of single-family (private) house as the place of occurrence of the external cause; Y99.9 Unspecified external cause status; F17.210 Nicotine dependence, cigarettes, uncomplicated